=== PATIENT | female | born 1965 | race African-American/Black ===

== ENCOUNTER → 2024-01-27 | Day surgery (SDC) | payer MEDICARE, MEDICAID ==
[~2024-01-27] VITALS: Ht 165.1 cm; Wt 68.0 kg
[~2024-01-27] MED LIST: LIDOCAINE HCL 1% 10 MG/ML 10ML VIAL ONE
[2024-01-27 11:18] LABS: CSF APPEARANCE CLEAR, COLORLESS (CLEAR)
[2024-01-27 11:48] LABS: GLUCOSE CSF 65 mg/dL (41-75)
[2024-01-27 12:32] LABS: CSF WHITE BLOOD CELL 0 /cu mm (0-10)
== END | disposition home or self-care (01) ==
LOC: RADANGIO 08:23
PROVIDERS: ATTEND Psychiatry & Neurology Neurology
DX: I77.6 Arteritis, unspecified (principal); Z79.899 Other long term (current) drug therapy
CPT/HCPCS: 62328; 87529 ×2; 82945; 84157; 89050; 86635; 87899; 87252; J3490